=== PATIENT | female | born 1985 | race Caucasian/White ===

== ENCOUNTER 2021-04-05 15:17 | Outpatient (CLI) | payer BC, SELFPAY ==
--- NOTE | ~2021-04-05 | US_ITS ---
EXAMINATION: US OB follow up DATE: 04/05/2021 16:03 INDICATION: Excessive growth TECHNIQUE: Real-time transabdominal obstetric ultrasound. FINDINGS: Maternal carrier for excessive growth. There is a single living fetus in vertex presentation. The placenta is anterior without placenta pre via. Placental margin is 9.6 cm to the cervix. cardiac activity and movement is noted with a heart rate of 141 beats per minute. T he amniotic fluid volume is normal. ADELITA measures 13.7 cm cyst. The following biometric data were obtained: BPD: 84mm corresponds to gestational age 34 weeks 0 days. Head circumference: 318mm corresponds to gestational age 35 weeks 5 days. Abdominal circumference: 315mm corresponds to gestational age 35 weeks 3 days. Femur length: 62mm corresponds to gestational age 32 weeks 0 days. Estimated weight: 2421 ggrams +/- 363grams.] IMPRESSION: 1. Single living intrauterine in vertex presentation with an estimated gestational age of 34 weeks 2 days by current ultrasound. 2. Normal placenta. Reviewed, dictated and finalized at location A. IMPRESSION: 1. Single living intrauterine in vertex presentation with an estimat ed gestational age of 34 weeks 2 days by current ultrasound. 2. Normal placenta.
== END 2021-04-05 15:18 | disposition home or self-care (01) ==
LOC: ANHIMG 15:19
PROVIDERS: PCP Family Medicine; Visit Provider Obstetrics & Gynecology
DX: O36.60X0 Maternal care for excessive fetal growth, unspecified trimester, not applicable or unspecified (principal); Z3A.34 34 weeks gestation of pregnancy
CPT/HCPCS: 76816

== ENCOUNTER 2021-04-17 13:24 | Outpatient (RCR) | payer BC, SELFPAY ==
[2021-03-29 15:59] VITALS: BP 142/90; PULSE 97
[2021-04-03 13:15] VITALS: BP 142/88; PULSE 99
--- NOTE | 2021-04-07 15:10 | PC.NURSE ---
FHR signal intermittent due to hiccoughs.
[2021-04-07 15:24] VITALS: BP 136/89; PULSE 90
[2021-04-10 15:32] VITALS: BP 148/92; PULSE 103
[2021-04-14 15:02] VITALS: BP 152/105; PULSE 97
[2021-04-17 14:04] VITALS: BP 144/95; PULSE 88
== END 2021-06-27 23:59 | disposition home or self-care (01) ==
LOC: ANHOBOP 13:24
PROVIDERS: PCP Family Medicine; Visit Provider Obstetrics & Gynecology
DX: O16.3 Unspecified maternal hypertension, third trimester (principal); O09.513 Supervision of elderly primigravida, third trimester; Z3A.32 32 weeks gestation of pregnancy; O99.213 Obesity complicating pregnancy, third trimester; Z3A.33 33 weeks gestation of pregnancy; Z3A.34 34 weeks gestation of pregnancy; Z3A.35 35 weeks gestation of pregnancy
CPT/HCPCS: 59025

== ENCOUNTER 2021-04-19 10:01 | Outpatient (CLI) | payer BC, SELFPAY ==
[2021-04-19 10:42] LABS: Hematocrit 34.9 % (37.0-47.0); Hemoglobin 11.3 g/dL (12.0-15.0); Mean Corpuscular HGB Conc 32.4 g/dl (32-36); Mean Corpuscular Hemoglobin 27.8 pg (26-34); Mean Platelet Volume 9.6 fl (7.4-10.4); Platelet Count Result 326 k/mm3 (150-375); Red Blood Count 4.06 M/mm3 (4.2-5.4); Red Cell Distribution Width 13.9 % (11.5-14.5); White Blood Count 6.9 K/mm3 (4.5-10.0)
[2021-04-19 10:53] LABS: Alanine Aminotransferase 11 U/L (4-35); Albumin Level 3.3 g/dL (3.5-5.1); Alkaline Phosphatase 121 U/L (38-126); Anion Gap 7 mmol/L (8-16); Aspartate Amino Transferase 17 U/L (14-36); Bilirubin,Total 0.2 mg/dL (0.2-1.3); Blood Urea Nitrogen 9 mg/dL (7-17); Calcium 8.9 mg/dL (8.4-10.2); Carbon Dioxide 22 mmol/L (22-30); Chloride 107 mmol/L (98-107); Estimated Glomerular Filt Rate > 60; Glucose 110 mg/dL (65-110); Potassium 4.3 mmol/L (3.4-5.0); Sodium 136 mmol/L (137-145); Uric Acid 4.9 mg/dL (2.5-7.5)
[2021-04-19 11:24] LABS: Collection Time Urine 24 HOURS
[2021-04-19 11:30] LABS: Total Volume 24 Hour Urine 3600 ml
[2021-04-19 11:33] LABS: Creatinine Urine 38.7 mg/dL; Patient Weight 290 Lbs; Total Protein Urine Random 104 mg/dL
[2021-04-19 11:54] LABS: Total Protein Urine 24 Hr 3744 mg/24hr (28-141)
[2021-04-19 12:04] LABS: Creatinine Clearance Urine 138.9 ml/min (75-125); Serum Creat 0.5
== END 2021-04-19 10:02 | disposition home or self-care (01) ==
LOC: ANHLAB 10:04
PROVIDERS: PCP Family Medicine; Visit Provider Obstetrics & Gynecology
DX: I10 Essential (primary) hypertension (principal)
CPT/HCPCS: 36415; 80053; 81050; 82575; 84156; 84550; 85027

== ENCOUNTER 2021-04-20 14:02 | Observation (INO) | payer BC, SELFPAY ==
[2021-04-20] VITALS (14 sets, daily range): BP systolic 143–156; BP diastolic 97–104; PULSE 86–107; O2SAT 98–99; BMI 42.3
--- NOTE | 2021-04-20 14:19 | OBADM ---
This patient, Nika Rdz, admitted to the OB room OB Post 116 for observation. Patient/family oriented to hospital policies and general routines including ID bracelet, bed and alarms, visiting hours, pain management, procedures, bathroom and other care routines, personal items, smoking policy, room service/diet, and visiting hours. Patient/Family are encouraged to report perceived risks to care and to ask questions if they do not understand what they are told or what they should do.
[2021-04-20 15:08] LABS: Basophils Percent Auto 0.2 % (0.2-1.2); Eosinophils Absolute Auto 0.1 K/mm3 (0-0.3); Eosinophils Percent Auto 1.4 % (0-4.4); Hematocrit 34.1 % (37.0-47.0); Hemoglobin 10.9 g/dL (12.0-15.0); Immature Granulocyte Absolute 0.04 K/mm3 (0.00-0.031); Immature Granulocyte Percent A 0.5 % (0-0.5); Lymphocytes Absolute Auto 1.38 K/mm3 (0.9-3.2); Mean Corpuscular Hemoglobin 27.7 pg (26-34); Mean Corpuscular Volume 86.8 fl (80-100); Mean Platelet Volume 9.6 fl (7.4-10.4); Monocytes Absolute Auto 0.7 K/mm3 (0.1-0.6); Neutrophils Absolute Auto 5.9 K/mm3 (1.3-6.7); Neutrophils Percent Auto 72.9 % (45.5-73.1); Platelet Count Result 275 k/mm3 (150-375); Red Blood Count 3.93 M/mm3 (4.2-5.4); White Blood Count 8.1 K/mm3 (4.5-10.0)
[2021-04-20 15:15] LABS: Add Urine Microscopic? YES; Appearance Urine Cloudy (Clear); Bacteria Urine Trace /hpf; Bilirubin Urine Negative (Negative); Blood Urine Negative (Negative); Color Urine Amber (Yellow); Glucose Urine UA Negative (Negative); Ketones Urine Trace mg/dL (Negative); Leukocyte Esterase Ur 2+ LEU/UL (NEGATIVE); Mucus Urine Few /lpf; Nitrate Urine Negative (Negative); Protein Urine 3+ mg/dL (Negative); Specific Grav Ur 1.025 (1.001-1.035); Squamous Epithelial Cell Urine Many /hpf (Few); Urobilinogen Urine Negative mg/dL (<2.0); WBC Urine 21-30 /hpf (0-3)
[2021-04-20 15:18] LABS: Alanine Aminotransferase 10 U/L (4-35); Albumin Level 3.3 g/dL (3.5-5.1); Alkaline Phosphatase 115 U/L (38-126); Anion Gap 6 mmol/L (8-16); Aspartate Amino Transferase 16 U/L (14-36); Bilirubin,Total 0.2 mg/dL (0.2-1.3); Blood Urea Nitrogen 12 mg/dL (7-17); Calcium 8.8 mg/dL (8.4-10.2); Carbon Dioxide 21 mmol/L (22-30); Chloride 105 mmol/L (98-107); Estimated CRCL calculation 186 ml/min; Estimated Glomerular Filt Rate > 60; Glucose 85 mg/dL (65-110); Potassium 4.2 mmol/L (3.4-5.0); Sodium 132 mmol/L (137-145); Uric Acid 4.8 mg/dL (2.5-7.5)
--- NOTE | 2021-04-20 15:51 | PC.NURSE ---
1448- Spoke with Dr. Louis, BP's reveiwed. Orders for labs and urine to be drawn. 153- SPoke with Dr. Rivas, labs reveiwed, BPs reveiwed. ORders to discharge to home and continue current meds. Dr. Martin will call with a plan on Thursday.
--- NOTE | 2021-05-17 10:52 | P.PNOB_ITS ---
OB - Triage/Final Diagnosis Visit Information Comments/Additional reasons for admission: I have assessed the risk for this patient, Nika Rdz, and determined that she would benefit from observation care. Evaluation Laboratory results: Laboratory Tests 04/20/21 04/20/21 04/20/21 14:59 14:59 14:59 WBC 8.1 RBC 3.93 L Hgb 10.9 L Hct 34.1 L MCV 86.8 MCH 27.7 MCHC 32.0 RDW 14.0 Plt Count 275 MPV 9.6 Immature Gran % (Auto) 0.5 Neut % (Auto) 72.9 Lymph % (Auto) 17.0 L [place] % (Auto) 8.0 Eos % (Auto) 1.4 Baso % (Auto) 0.2 Lymph # (Auto) 1.38 [place] # (Auto) 0.7 H Eos # (Auto) 0.1 Baso # (Auto) 0.0 Abs Immat Gran (auto) 0.04 H Absolute Neuts (auto) 5.9 Absolute Nucleated RBC 0.0 Nucleated RBC % 0.0 Sodium 132 L Potassium 4.2 Chloride 105 Carbon Dioxide 21 L Anion Gap 6 L BUN 12 Creatinine 0.50 L Estim Creat Clear Calc 186 Estimated GFR > 60 Glucose 85 Uric Acid 4.8 Calcium 8.8 Total Bilirubin 0.2 AST 16 ALT 10 Alkaline Phosphatase 115 Total Protein 6.0 L Albumin 3.3 L Urine Color Lulú Urine Appearance Cloudy H Urine pH 6.0 Ur Specific [place] 1.025 Urine Protein 3+ H Urine Glucose (UA) Negative Urine Ketones Trace Ur Blood (Man) Negative Urine Nitrate Negative Urine Bilirubin Negative Urine Urobilinogen Negative Ur Leukocyte Esterase 2+ H Urine RBC 11-20 H Urine WBC 21-30 H Ur Squamous Epith Cells Many H Urine Bacteria Trace Urine Mucus Few H Final Diagnosis (1) induced hypertension: Code(s): O13.9 - Gestational [-induced] hypertension without significant proteinuria, unspecified trimester Status: Acute
== END 2021-04-20 15:47 | disposition home or self-care (01) ==
PROVIDERS: Admitting Provider Obstetrics & Gynecology; PCP Family Medicine; Visit Provider Obstetrics & Gynecology
DX: O13.3 Gestational [pregnancy-induced] hypertension without significant proteinuria, third trimester (principal); Z3A.35 35 weeks gestation of pregnancy
CPT/HCPCS: 36415; 59025; 80053; 81001; 84550; 85025; 87086; 87088; G0378; G0379

== ENCOUNTER 2021-04-22 09:31 | Inpatient (IN) | payer BC, SELFPAY ==
[2021-04-22] VITALS (160 sets, daily range): BP systolic 80–179; BP diastolic 49–110; PULSE 60–274; RESP 18; TEMP 36.6–36.9; O2SAT 90–100; BMI 42.1
--- NOTE | ~2021-04-22 | US_ITS ---
EXAMINATION: US pelvic complete EXAM DATE: 04/23/2021 08:24 INDICATION: PP bleed;check for retained placenta. Bedside Bleed . TECHNIQUE: Pelvic transabdominal sonogram was performed. There are multiple grayscale and Doppler im ages available for interpretation. Correlation is made to obstetrical ultrasound 04/05/2021. FINDINGS: The uterus measures 22.1 x 10.5 x 10.0 cm, enlarged, with diffusely heterogeneous myometriu m, consistent with patient's recent status. Centrally there is also hypoechoic region vinh ured as endometrium at 3.0 cm which is considered abnormally thickened. There is also diffusely heter ogeneous appearance to the lower uterine segment, difficult to distinguish endometrium from myometriu m. This could be from blood products or retained products of conception. Right adnexa: The ovary is not identified. There is no adnexal mass. Left adnexa: The ovary is not identified. There is no adnexal mass. IMPRESSION: 1. Thickened endometrium at 30 mm, blood products or retained products of conception. 2. Enlarged heterogeneous myometrium. Reviewed, dictated and finalized at location D. [employer]OS SHINGLE INSPECTOR IMPRESSION: 1. Thickened endometrium at 30 mm, blood products or retained products of conc eption. 2. Enlarged heterogeneous myometrium.
[2021-04-22 11:19] LABS: Basophils Percent Auto 0.4 % (0.2-1.2); Eosinophils Absolute Auto 0.1 K/mm3 (0-0.3); Eosinophils Percent Auto 1.8 % (0-4.4); Hematocrit 33.9 % (37.0-47.0); Hemoglobin 10.9 g/dL (12.0-15.0); Immature Granulocyte Absolute 0.02 K/mm3 (0.00-0.031); Immature Granulocyte Percent A 0.3 % (0-0.5); Lymphocytes Absolute Auto 1.19 K/mm3 (0.9-3.2); Lymphocytes Percent Auto 16.3 % (18.3-44.2); Mean Corpuscular HGB Conc 32.2 g/dl (32-36); Mean Corpuscular Hemoglobin 27.9 pg (26-34); Mean Corpuscular Volume 86.9 fl (80-100); Mean Platelet Volume 9.7 fl (7.4-10.4); Monocytes Absolute Auto 0.6 K/mm3 (0.1-0.6); Monocytes Percent Auto 8.6 % (2.6-8.5); Neutrophils Absolute Auto 5.3 K/mm3 (1.3-6.7); Neutrophils Percent Auto 72.6 % (45.5-73.1); Platelet Count Result 290 k/mm3 (150-375); Red Cell Distribution Width 14.2 % (11.5-14.5); White Blood Count 7.3 K/mm3 (4.5-10.0)
[2021-04-22] MEDS: LACTATED RINGERS 1,000 ML 75 ML IV CONT ×2 (11:21→21:08)
[2021-04-22] MEDS: MAGNESIUM SULF 4 GM/WATER100ML 4 GM/100 ML BAG IVPB (11:24)
[2021-04-22] MEDS: OXYTOCIN 30 UNITS/NS 500 ML 30 UNITS/500 ML BAG 6 UNITS IV CONT (11:27)
[2021-04-22 11:35] LABS: Uric Acid 5.2 mg/dL (2.5-7.5)
[2021-04-22 11:37] LABS: Alanine Aminotransferase 12 U/L (4-35); Albumin Level 3.3 g/dL (3.5-5.1); Alkaline Phosphatase 113 U/L (38-126); Anion Gap 5 mmol/L (8-16); Aspartate Amino Transferase 19 U/L (14-36); Bilirubin,Total 0.2 mg/dL (0.2-1.3); Blood Urea Nitrogen 12 mg/dL (7-17); Calcium 8.8 mg/dL (8.4-10.2); Carbon Dioxide 23 mmol/L (22-30); Chloride 105 mmol/L (98-107); Estimated Glomerular Filt Rate > 60; Glucose 93 mg/dL (65-110); Potassium 4.2 mmol/L (3.4-5.0); Sodium 133 mmol/L (137-145)
[2021-04-22] MEDS: LABETALOL HCL INJ 100 MG/20 ML VIAL 20 MG IV PUSH (14:12)
--- NOTE | 2021-04-22 15:17 | PM.IMHP ---
H&P: HPI History of Present Illness Date/Time: 04/22/21 15:17 G1 at 36+0 was scheduled this am for emergent induction of labor due to superimposed preeclampsia based on 24 hour urine results received by me this morning (3744 mg protein). She denies CAMP/visual changes. Normal movement. Occasional cramping. No bleeding or leaking fluid. She has been on procardia for a couple weeks Chief Complaint: Superimposed preeclampsia, 36 weeks gestation Review of Systems Review of Systems: All systems reviewed & are unremarkable except as noted in HPI and below PMFSH Past Medical History Medical History Anxiety Asthma Surgical History Surgical History No pertinent past surgical history Family History Family History Father Hypertension, Onset Age: 47 Family history of elevated blood lipids Family history of cardiovascular disease, Onset Age: 47 Alcoholism Depression Anxiety Mother Hypertension Family history of elevated blood lipids Grandparent Cerebrovascular accident Family history of hypercholesterolemia Family history of suicide Family history of glaucoma Family history of lung cancer Alcoholism Hypertension Anxiety Depression Social History Social History Smoking status: Never smoker Second hand tobacco smoke exposure: No Alcohol intake: never Substance use: never Spiritual care concerns: No Meds Home Medications and Allergies Home Medications Medication Instructions Recorded Confirmed Type montelukast 10 mg tablet 10 mg PO DAILY #90 tablet 12/16/20 04/20/21 Rx docosahexaenoic acid 200 mg capsule 200 mg PO DAILY 03/08/21 04/20/21 History sertraline 100 mg tablet 100 mg PO DAILY #30 tablet 03/11/21 04/20/21 Rx aspirin 162 mg PO DAILY 04/07/21 04/20/21 History nifedipine 30 mg PO BID 04/20/21 04/20/21 History Allergies Allergy/AdvReac Type Severity Reaction Status Date / Time Penicillins Allergy Severe FEVER, Verified 04/17/21 12:53 VOMITTING, FLU-LIKE SYMPTOMS, HIVES, anaphylaxis Vital Signs Vital Signs - 24 hr 04/22/21 10:34 04/22/21 10:45 04/22/21 11:00 Pulse Rate 93 96 91 Blood Pressure 153/102 H 161/105 H 154/105 H 04/22/21 11:31 04/22/21 11:45 04/22/21 12:01 Pulse Rate 94 99 91 Blood Pressure 137/98 H 149/100 H 138/97 H 04/22/21 12:15 04/22/21 12:31 04/22/21 12:46 Pulse Rate 93 89 97 Blood Pressure 148/94 H 144/98 H 161/102 H 04/22/21 13:00 04/22/21 13:16 04/22/21 13:30 Pulse Rate 93 90 89 Blood Pressure 173/99 H 166/101 H 161/102 H 04/22/21 13:45 04/22/21 14:11 04/22/21 14:12 Pulse Rate 98 86 89 Blood Pressure 179/102 H 152/93 H 04/22/21 14:16 04/22/21 14:21 04/22/21 14:26 Pulse Rate 82 83 82 Blood Pressure 143/87 H 153/87 H 151/92 H 04/22/21 14:31 04/22/21 14:36 04/22/21 14:46 Pulse Rate 85 86 81 Blood Pressure 144/93 H 155/93 H 147/93 H 04/22/21 15:01 Pulse Rate 83 Blood Pressure 153/92 H Exam Const: General: healthy appearing, no acute distress, alert and awake Resp: Auscultation: clear to auscultation bilaterally Cardio: Rate: regular rate Rhythm: regular rhythm GI: Inspection: non-distended GI Palp: Yes Soft to palpation, No Tenderness to palpation present (GI) and Yes Other GI palpation findings present (gravid) : Manual OB Exam: dilated 2 cm, effaced 50%, station -2 and other (AROM with clear fluid, IUPC placed easily) Extrem: General: no calf tenderness and edema (2+ bilateral feet/ankles) Psych: Mental Status: mental status grossly normal H&P: Results Labs Labs: Short CBC 04/22/21 Range/Units 11:10 WBC 7.3 (4.5-10.0) K/mm3 Hgb 10.9 L (12.0-15.0) g/dL Hct 33.9 L (37.0-47.0) %
--- NOTE | 2021-04-22 17:04 | WPDANESEPPF ---
Anes - Initial Pre Proc Eval Procedure: labor epidural Date/Time: 04/22/21 17:04 Surgeon: Yue Martin MD Pre Op Diagnosis: labor pain Pre Op Diagnosis: Induction of Labor/preeclampsia Patient Data Age: 35 Gender: F Height: Weight: Last Vital Signs Temp 36.9 C 04/22/21 15:56 Pulse 76 04/22/21 17:01 BP 154/88 H 04/22/21 17:01 Allergies Allergy/AdvReac Type Severity Reaction Status Date / Time Penicillins Allergy Severe FEVER, Verified 04/17/21 12:53 VOMITTING, FLU-LIKE SYMPTOMS, HIVES, anaphylaxis Home Medications Medication Instructions Recorded Confirmed Type montelukast 10 mg tablet 10 mg PO DAILY #90 tablet 12/16/20 04/20/21 Rx docosahexaenoic acid 200 mg capsule 200 mg PO DAILY 03/08/21 04/20/21 History sertraline 100 mg tablet 100 mg PO DAILY #30 tablet 03/11/21 04/20/21 Rx aspirin 162 mg PO DAILY 04/07/21 04/20/21 History nifedipine 30 mg PO BID 04/20/21 04/20/21 History Laboratory Tests 04/22/21 04/22/21 04/22/21 11:09 11:09 11:10 WBC 7.3 K/mm3 K/mm3 (4.5-10.0) RBC 3.90 M/mm3 L M/mm3 (4.2-5.4) Hgb 10.9 g/dL L g/dL (12.0-15.0) Hct 33.9 % L % (37.0-47.0) MCV 86.9 fl fl (80-100) MCH 27.9 pg pg (26-34) MCHC 32.2 g/dl g/dl (32-36) RDW 14.2 % % (11.5-14.5) Plt Count 290 k/mm3 k/mm3 (150-375) MPV 9.7 fl fl (7.4-10.4) Immature Gran % (Auto) 0.3 % % (0-0.5) Neut % (Auto) 72.6 % % (45.5-73.1) Lymph % (Auto) 16.3 % L % (18.3-44.2) [place] % (Auto) 8.6 % H % (2.6-8.5) Eos % (Auto) 1.8 % % (0-4.4) Baso % (Auto) 0.4 % % (0.2-1.2) Lymph # (Auto) 1.19 K/mm3 K/mm3 (0.9-3.2) [place] # (Auto) 0.6 K/mm3 K/mm3 (0.1-0.6) Eos # (Auto) 0.1 K/mm3 K/mm3 (0-0.3) Baso # (Auto) 0.0 K/mm3 K/mm3 (0.0-0.1) Abs Immat Gran (auto) 0.02 K/mm3 K/mm3 (0.00-0.031) Absolute Neuts (auto) 5.3 K/mm3 K/mm3 (1.3-6.7) Absolute Nucleated RBC 0.0 K/mm3 K/mm3 (0.0-0.012) Nucleated RBC % 0.0 % % (0.0-0.2) Sodium Potassium Chloride Carbon Dioxide Anion Gap BUN Creatinine Estim Creat Clear Calc Estimated GFR Glucose Uric Acid Calcium Total Bilirubin AST ALT Alkaline Phosphatase Total Protein Albumin RPR Pending Blood Type A Positive Antibody Screen Negative 04/22/21 04/22/21 11:10 11:10 WBC RBC Hgb Hct MCV MCH MCHC RDW Plt Count MPV Immature Gran % (Auto) Neut % (Auto) Lymph % (Auto) [place] % (Auto) Eos % (Auto) Baso % (Auto) Lymph # (Auto) [place] # (Auto) Eos # (Auto) Baso # (Auto) Abs Immat Gran (auto) Absolute Neuts (auto) Absolute Nucleated RBC Nucleated RBC % Sodium 133 mmol/L L mmol/L (137-145) Potassium 4.2 mmol/L mmol/L (3.4-5.0) Chloride 105 mmol/L mmol/L (98-107) Carbon Dioxide 23 mmol/L mmol/L (22-30) Anion Gap 5 mmol/L L mmol/L (8-16) BUN 12 mg/dL mg/dL (7-17) Creatinine 0.50 mg/dL L mg/dL (0.7-1.0) Estim Creat Clear Calc Not Reportable Estimated GFR > 60 (59 - ) Glucose 93 mg/dL mg/dL (65-110) Uric Acid 5.2 mg/dL mg/dL (2.5-7.5) Calcium 8.8 mg/dL mg/dL (8.4-10.2) Total Bilirubin 0.2 mg/dL mg/dL (0.2-1.3) AST 19 U/L U/L (14-36) ALT 12 U/L U/L (4-35) Alkaline Phosphatase 113 U/L U/L (38-126)
[2021-04-22] MEDS: MAGNESIUM SULF 20GM/WATER500ML 500 ML 50 MG IV CONT (21:19)
[2021-04-23] VITALS (191 sets, daily range): BP systolic 61–148; BP diastolic 26–106; PULSE 70–240; RESP 13–18; TEMP 36.2–37; O2SAT 89–100
--- NOTE | 2021-04-23 02:24 | PM.OBPRVD ---
OB - Delivery Note Procedure Delivery date: 04/23/21 Procedure: events: Pre-Eclampsia and Labor Induction Intrapartal events: Severe Preeclampsia Induction method: per pitocin protocol Delivery augmentation: rupture of membranes Delivery monitor: external FHT and internal uterine Route of delivery: Laceration Description: Periurethral (right) and Perineal - 2nd Degree Delivery repair: vicryl (2-0 and 3-0) Specimen: Yes Quantitative Blood Loss (ml): 1,100 Anesthesia type: Epidural Disposition: floor Complications: greater than average blood loss, prior to delivery from laceration with pushing, then large gush just prior to delivery of placenta [place] Baby Date of : 04/23/21 Time of : 01:55 Weeks of gestation at delivery: 36 Infant gender: Male Weight (pounds): 5 Weight (ounces): 15 presentation: vertex position: Left Occiput Anterior Placenta delivery description: Spontaneous cord vessel description: 3 Vessels and Clamped/Cut score one minute: 5 score five minutes: 7
[2021-04-23 03:15] LABS: Hematocrit 27.6 % (37.0-47.0); Hemoglobin 9.2 g/dL (12.0-15.0)
[2021-04-23] MEDS: LACTATED RINGERS 1,000 ML 75 ML IV CONT (04:51)
[2021-04-23] MEDS: IBUPROFEN 600 MG TABLET PO (05:24)
[2021-04-23] MEDS: ONDANSETRON INJ 4 MG/2 ML VIAL IV PUSH (06:18)
[2021-04-23] MEDS: miSOPROStol 200 MCG TABLET 1000 MCG RECTAL (06:18)
[2021-04-23] MEDS: OXYTOCIN 30 UNITS/NS 500 ML 30 UNITS/500 ML BAG 125 UNITS (06:32)
[2021-04-23] MEDS: MAGNESIUM SULF 20GM/WATER500ML 500 ML 50 MG IV CONT ×3 (07:21→18:36)
[2021-04-23 07:38] LABS: Hematocrit 23.2 % (37.0-47.0); Hemoglobin 7.6 g/dL (12.0-15.0)
--- NOTE | 2021-04-23 08:05 | PM.OBPNVD ---
OB - PN: Subj Subjective Date/time seen: 04/23/21 08:05 Patient comments: pain well controlled and other (She has had two or three gushes of blood after delivery. Feels week and exhausted but no CP, SOB, dizziness, CAMP, visual changes) baby status: doing well OB - PN: Obj Data Labs CBC & Chem 7: 04/23/21 03:00 04/22/21 11:10 Labs: Laboratory Results - last 24 hr 04/22/21 04/22/21 04/22/21 11:09 11:10 11:10 WBC 7.3 RBC 3.90 L Hgb 10.9 L Hct 33.9 L MCV 86.9 MCH 27.9 MCHC 32.2 RDW 14.2 Plt Count 290 MPV 9.7 Immature Gran % (Auto) 0.3 Neut % (Auto) 72.6 Lymph % (Auto) 16.3 L [place] % (Auto) 8.6 H Eos % (Auto) 1.8 Baso % (Auto) 0.4 Lymph # (Auto) 1.19 [place] # (Auto) 0.6 Eos # (Auto) 0.1 Baso # (Auto) 0.0 Abs Immat Gran (auto) 0.02 Absolute Neuts (auto) 5.3 Absolute Nucleated RBC 0.0 Nucleated RBC % 0.0 Sodium Potassium Chloride Carbon Dioxide Anion Gap BUN Creatinine Estim Creat Clear Calc Estimated GFR Glucose Uric Acid 5.2 Calcium Total Bilirubin AST ALT Alkaline Phosphatase Total Protein Albumin Blood Type A Positive Antibody Screen Negative 04/22/21 04/23/21 11:10 03:00 WBC RBC Hgb 9.2 L Hct 27.6 L MCV MCH MCHC RDW Plt Count MPV Immature Gran % (Auto) Neut % (Auto) Lymph % (Auto) [place] % (Auto) Eos % (Auto) Baso % (Auto) Lymph # (Auto) [place] # (Auto) Eos # (Auto) Baso # (Auto) Abs Immat Gran (auto) Absolute Neuts (auto) Absolute Nucleated RBC Nucleated RBC % Sodium 133 L Potassium 4.2 Chloride 105 Carbon Dioxide 23 Anion Gap 5 L BUN 12 Creatinine 0.50 L Estim Creat Clear Calc Not Reportable Estimated GFR > 60 Glucose 93 Uric Acid Calcium 8.8 Total Bilirubin 0.2 AST 19 ALT 12 Alkaline Phosphatase 113 Total Protein 6.0 L Albumin 3.3 L Blood Type Antibody Screen OB - PN A/P Assessment and Plan (1) Pre-eclampsia superimposed on chronic hypertension: Code(s): O11.9 - Pre-existing hypertension with pre-eclampsia, unspecified trimester Status: Acute Assessment and Plan: BP now low. Continue magnesium 24 hours after delivery and observe closely (2) hemorrhage, delivered: Code(s): O72.1 - Other immediate hemorrhage Status: Acute Assessment and Plan: Total QBL between 6716-9229 mL now with anemia, most recent hemoglobin 9.2, another pending. She is willing to receive blood if needed. Will await the pending H&H. Check U/S for possible retained placenta. NPO for now in case she needs D&C Plan day: 0 (s/p vaginal delivery, doing well) Plan: routine care Time Spent With Patient Time: Total time spent is greater than 50% in coordination of care (as documented) at patient's floor/unit and/or counseling patient: Time with patient: less than 15 minutes Exam Const: General: no acute distress GI: Inspection: other (Fundus firm and nontender at umbilicus) GI Palp: Yes Soft to palpation and No Tenderness to palpation present (GI) Extrem: General: no edema
--- NOTE | 2021-04-23 08:32 | PC.NURSE ---
0810--US at bedside.
--- NOTE | 2021-04-23 08:33 | PC.NURSE ---
0755--Dr. Martin at bedside. Plan of care discussed with patient and FOB.
--- NOTE | 2021-04-23 08:50 | PC.NURSE ---
0850--Dr. Araya at bedside to start IV with US machine.
--- NOTE | 2021-04-23 09:44 | WPDHPUPDATE1 ---
History and Physical Update Update Date/Time: 04/23/21 09:44 History and Physical has been reviewed, including an updated exam of the patient. Ultrasound this am shows possible retained products of conception, so she agreed to proceed with D&C and signed consent after risks, benefits, and alternatives have been discussed and questions answered. Patient agrees to proceed with procedure.
--- NOTE | 2021-04-23 10:29 | W.PM.PROC2 ---
Procedure Note - Detailed Date of Procedure 04/23/21 Pre-op Diagnosis hemorrhage, possible retained placenta Post-op Diagnosis other ( hemorrhage, retained placenta) Procedure Performed Suction and sharp D&C Surgeon Yue Martin MD Anesthesia general Indications hemorrhage, possible retained placenta on ultrasound Findings multiple clots and small amounts of tissue inside vagina/uterus. Cervix intact Description of Procedure She was taken to the operating room where general anesthesia was obtained. She was prepared and draped in the normal sterile fashion in the dorsal lithotomy position. A speculum was placed in the vagina. Her cervix was unable to be visualized at 1st due to multiple dark red blood clots in the vaginal canal. Those were removed using ring forceps until the cervix was able to be visualized. The anterior lip of the cervix was grasped with a ring forceps. Her cervix was still dilated to 3-4 cm. A 14. Curved suction curette was passed easily into the endometrial canal. Several passes were made with the suction, obtaining and multiple blood clots again small pieces of what looked like membranes and/or retained placental tissue. A gentle sharp curettage was then performed, loosening any remaining tissue. Another couple passes were taken with the suction curette. Minimal blood and no apparent tissue was obtained at that point. The cervix was inspected he carefully around the entire circumference, and it was noted to be intact with no lacerations. There were no bleeding lacerations present in the vagina. The stitches that had been placed previously were still intact. All instruments were removed from the vagina. Sponge, lap, and instrument counts were correct x2. She was taken to the recovery room in stable condition. Estimated Blood Loss 600 Drains No Packing No Pathology yes Complications No immediate complications Condition stable Disposition PACU
--- NOTE | 2021-04-23 10:35 | PC.NURSE ---
0903--US report relayed to Dr. Martin. Decision made to perform D&C. Anesthesia and OR notified.
[2021-04-23] MEDS: LACTATED RINGERS 1,000 ML 30 ML IV CONT (10:37)
--- NOTE | 2021-04-23 10:41 | PC.NURSE ---
0999--Discussed plan of care with patient and FOB. No questions at this time. Pt verbalizes understanding of procedure.
--- NOTE | 2021-04-23 10:51 | PC.NURSE ---
0922--report given to OR.
--- NOTE | 2021-04-23 10:51 | PC.NURSE ---
0940--PT to [facility].
[2021-04-23] MEDS: SODIUM CHLORIDE 0.9% IV 250 ML 30 ML IV CONT (11:00)
[2021-04-23] MEDS: LACTATED RINGERS 1,000 ML 75 ML (12:18)
[2021-04-23] MEDS: SERTRALINE HCL 50 MG TABLET 100 MG PO (14:59)
--- NOTE | 2021-04-23 15:40 | PC.NURSE ---
Mother called out for assist with feeding. is able to freely thrust tongue past gum ridge and flange both lips. Skin is intact on both nipples, no redness and bruising noted. Discussed establishing in the late may be more difficult due to their immaturity, may be less alert, have less stamina, and have greater difficulty with latch, suck, and swallow. ?s feeding may impact mother?s milk supply, pumping may need to be initiated continued until milk supply is well established and is able to effectively breastfeed without supplementation. Reviewed infant feeding cues, frequencies, duration of feedings, feeding elimination flow sheet, and signs of adequate intake. Demonstrated stimulation techniques to wake infant for feeding. Assisted with infant to breast. Reviewed positioning/alignment in cross cradle, holding breast in ?U? hold and guided asymmetrical latch on. Reviewed rational for each. Infant able to latch correctly within a few attempts. Infant made no effort to suckle with continued stimulation. Attempt for 15 minutes. Suggested mother put to breast each feeding for 5-15 minutes, then follow with supplement and pumping Nipple care reviewed of lanolin after feedings, warm compresses as needed. Discussed the difference of effective vs ineffective feeding. Reviewed infant is latching with no effective feeding noted. With no milk transfer at this time and continues to need supplement after . Feeding options discussed, Feeding Plan is for mother to put to breast each feeding for up to 15 minutes, then pace feed supplement 15-20 mls and pump for 10-15 minutes. Parents are comfortable with supplementation and pumping. If infant begins to nurse effectively with long draws and frequent swallowing noted, may decrease supplementation and discontinue pumping. Suggested mother have LC geospatial systems integrator observe feeding before discontinuing supplementation. Discussed increasing supplementation as infant requires to satisfactions. Reviewed paced feeding and suggested to stop when is satisfied, as long as is having required output. With increased supplementation infant may not want to feed for 4 hours. Mother will continue to pump on feeding schedule and will increase session to 20 minutes if pumping every 4 hours. Instructed mother to call out for RN assistance if she is unable to latch for feeding or she has discomfort with nursing. Instructed feeding should be initiated three hours from start of last feeding or if feeding cues are noted before. Mother voiced understanding of information shared.
[2021-04-23] MEDS: POLYSACCHARIDE IRON COMPLEX 150 MG CAPSULE PO (16:00)
[2021-04-23] MEDS: DOCUSATE SODIUM 100 MG CAPSULE PO (16:00)
--- NOTE | 2021-04-23 16:00 | PC.NURSE ---
Breast pump provided due to ineffective feeding/. Instructions given on breast pump care and usage, pumping schedule, nipple care, and collection and storage of breast milk. Encouraged [id number], breast massage and manual expression to stimulate supply. Assessed patient for correct flange size, placement and draw. Patient verbalizes and demonstrates understanding of instructions.
--- NOTE | 2021-04-23 16:24 | PC.NURSE ---
1203 Pt admitted to room 280 from PACU after D&C today with Dr. Martin; Pt delivered viable male infant at 0155 today; she had bleeding PP that did not respond to the treatments given, and pt was taken to OR for a D&C. Pt admitted awake and alert, reporting no pain; VSS and assessment WNL. Magnesium and LR infusing as ordered.
[2021-04-23] MEDS: ACETAMINOPHEN 325 MG TABLET 650 MG PO ×2 (17:33→23:49)
[2021-04-24] VITALS (7 sets, daily range): BP systolic 131–144; BP diastolic 78–98; PULSE 87–96; RESP 16–20; TEMP 36.4–37.1; O2SAT 98–100
[2021-04-24 05:01] LABS: Hematocrit 24.4 % (37.0-47.0); Hemoglobin 7.8 g/dL (12.0-15.0)
--- NOTE | 2021-04-24 07:00 | PC.NURSE ---
PT introductions made and plan of care discussed per post , pain management, breast feeding, pumping and bottle feeding, daily care activities and post PIH magnesium sulfate administration. PT and spouse both recipients of instructions this shift per one to one discussion, mom baby care guide and demonstrations. PT shows no barriers to learning at this time.
--- NOTE | 2021-04-24 08:34 | PM.OBPNVD ---
OB - PN: Subj Subjective Date/time seen: 04/24/21 08:34 Patient comments: pain well controlled and other (Lochia similar to menses. No CP, SOB, dizziness, CAMP, visual changes. Feels tired but much better) [place] baby status: doing well OB - PN: Obj Data Labs CBC & Chem 7: 04/24/21 04:25 04/22/21 11:10 Labs: Laboratory Results - last 24 hr 04/22/21 04/24/21 11:09 04:25 Hgb 7.8 L Hct 24.4 L Blood Type A Positive Antibody Screen Negative Crossmatch See Detail Imaging Radiologist's impression: Impressions Pelvis Ultrasound 04/23/21 08:36 IMPRESSION: 1. Thickened endometrium at 30 mm, blood products or retained products of conception. 2. Enlarged heterogeneous myometrium. OB - PN A/P Assessment and Plan (1) Pre-eclampsia superimposed on chronic hypertension: Code(s): O11.9 - Pre-existing hypertension with pre-eclampsia, unspecified trimester Status: Acute Assessment and Plan: BP normal to mildly elevated, which is expected at this point. She was on nifedipine prior to delivery, but being held due to hypotension yesterday. Will continue to observe off BP medication and now off magnesium. Asymptomatic (2) hemorrhage, delivered: Code(s): O72.1 - Other immediate hemorrhage Status: Acute Assessment and Plan: Improved after D&C yesterday for retained placenta. Anemia s/p 2 units PRBCs. Vitals improved and stable, and no symptoms of severe anemia. Continue to observe closely Plan day: 1 (s/p vaginal delivery, doing well) Plan: routine care Time Spent With Patient Time: Total time spent is greater than 50% in coordination of care (as documented) at patient's floor/unit and/or counseling patient: Exam Const: General: no acute distress GI: Inspection: other (Fundus firm and nontender at umbilicus) GI Palp: Yes Soft to palpation and No Tenderness to palpation present (GI) Extrem: General: no edema
[2021-04-24] MEDS: SERTRALINE HCL 50 MG TABLET 100 MG PO (09:20)
[2021-04-24] MEDS: DOCUSATE SODIUM 100 MG CAPSULE PO ×2 (09:21→15:51)
[2021-04-24] MEDS: MULTIVIT/MIN/PREN/FOL AC/IRON TABLET 1 TAB PO (09:21)
[2021-04-24] MEDS: POLYSACCHARIDE IRON COMPLEX 150 MG CAPSULE PO ×2 (09:24→15:52)
[2021-04-24] MEDS: ACETAMINOPHEN 325 MG TABLET 650 MG PO ×3 (09:25→21:58)
[2021-04-24] MEDS: IBUPROFEN 600 MG TABLET PO ×3 (09:26→21:58)
[2021-04-24] MEDS: LANOLIN (LANSINOH) 7.5 GM CREAM 1 APPLIC TOPICAL (09:29)
--- NOTE | 2021-04-24 09:54 | WPDANLDPN2 ---
Anes-Prog Note L&D Date/Time: 04/24/21 09:54 Comfortable throughout: labor and delivery Neuraxial method: epidural Epidural/Spinal procedure site: clean & non-tender Neuro status: Neuro function grossly intact. Cardiovascular status: normal Respiratory status: normal Airway patency: baseline Mental status: baseline Post-Op hydration status: normal Vital Signs: Last Vital Signs Temp 37.1 C 04/24/21 07:45 Pulse 88 04/24/21 07:45 Resp 18 04/24/21 07:45 BP 133/82 04/24/21 07:45 Pulse Ox 100 04/24/21 07:45 Pain score (VAS): 0 I/O: Intake & Output 04/23/21 04/24/21 04/24/21 23:59 07:59 15:59 Intake Total 850 350 Output Total 2800 400 Balance -1950 -50 Post-procedural complaints: none Patient feedback: Patient satisfied with anesthetic care.
--- NOTE | 2021-04-24 14:50 | PC.NURSE ---
Consult with pt., mother states she has not pumped regularly, she has been tired from the Magnesium, which has now been discontinued. Mother states she has pumped a few times and plans to shower and to begin pumping every three hours. Mother denied discomfort or difficulties with pumping. Discussed colostrum vs milk supply and mother may not see more than a few drops the first few days, milk should transition in by day 3 and she may see more volume pumped per session. Mother voiced understanding of information shared.
[2021-04-25 03:50] VITALS: BP 144/95; PULSE 84
[2021-04-25] MEDS: ACETAMINOPHEN 325 MG TABLET 650 MG PO ×2 (03:52→10:47)
[2021-04-25] MEDS: IBUPROFEN 600 MG TABLET PO ×2 (03:52→10:48)
--- NOTE | 2021-04-25 06:45 | PC.NURSE ---
PT introductions made and plan of care discussed per post , pain management, breast feeding, pumping and bottle feeding, daily care activities, post PIH magnesium sulfate administration and pending discharge to home. PT and spouse both recipients of instructions this shift per one to one discussion, mom baby care guide and demonstrations. PT shows no barriers to learning at this time.
[2021-04-25 07:55] VITALS: BP 119/80; PULSE 56; RESP 16; TEMP 36.1; O2SAT 99
--- NOTE | 2021-04-25 07:59 | P.PNOB_ITS ---
OB - PN: Subj Subjective Date/time seen: 04/25/21 07:59 Patient comments: no complaints, pain well controlled and other (Lochia similar to menses. No CP, SOB, dizziness, CAMP, visual changes) [place] baby status: doing well OB - PN: Obj Data Labs CBC & Chem 7: 04/24/21 04:25 04/22/21 11:10 OB - PN A/P Assessment and Plan (1) Pre-eclampsia superimposed on chronic hypertension: Code(s): O11.9 - Pre-existing hypertension with pre-eclampsia, unspecified trimester Status: Acute Assessment and Plan: BP normal to mildly elevated, asymptomatic. Will continue to observe without medication. Reviewed signs/sx preeclampsia and that it can occur as well. She expressed understanding (2) hemorrhage, delivered: Code(s): O72.1 - Other immediate hemorrhage Status: Acute Assessment and Plan: Anemia, stable s/p 2 units PRBCs and D&C 2 days ago for retained placenta. Asymptomatic, vitals stable. Continue PNV and iron Plan day: 2 (s/p vaginal delivery, doing well) Plan: routine care, discharge home and other (Follow up in office in 1 week) Time Spent With Patient Time: Total time spent is greater than 50% in coordination of care (as documented) at patient's floor/unit and/or counseling patient: Time with patient: less than 15 minutes Exam Const: General: no acute distress GI: Inspection: other (Fundus firm and nontender below umbilicus) GI Palp: Yes Soft to palpation and No Tenderness to palpation present (GI) Extrem: General: no edema
--- NOTE | 2021-04-25 08:02 | PM.OBDSVD ---
DS: Admitting Diagnosis Discharge Date 04/25/2021 Admitting Diagnosis superimposed preeclampsia, induction of labor DS: Discharge Diagnosis Discharge Diagnosis (1) Pre-eclampsia superimposed on chronic hypertension: Code(s): O11.9 - Pre-existing hypertension with pre-eclampsia, unspecified trimester Status: Acute (2) hemorrhage, delivered: Code(s): O72.1 - Other immediate hemorrhage Status: Acute OB - DS: Summary OB Procedures : PIH Mgmt OB Procedures Intrapartum: Spontaneous Vag Delivery OB Procedures: : Transfusion and Curettage Peripartum Data Infant Delivery Method: Natural Vaginal Laceration Description: Periurethral and Perineal - 2nd Degree Procedures: Procedures Operation Date: 04/23/21 10:00 Actual Procedure Side Surgeon p Suction Dilatation and Curettage Not Applicable Yue Martin MD Status at Discharge Functional status at discharge: independent ambulation Overall status at discharge: patient is progressing back to baseline Time Spent with Patient Time attestation: Total time spent providing and/or coordinating discharge services: Time spent: Less than 30 minutes DS: Data Data Completed and Pending Pending studies at discharge: Pending at discharge 04/23/21 10:20 Surgical [PTH] Routine 04/23/21 13:15 Surgical [PTH] Routine Discharge Plan Discharge Attending physician on discharge: Yue Martin Discharging Clinician: Yue Martin Patient Disposition: Home, Self-Care Activity: may shower and pelvic rest Diet: as tolerated Discharge Instructions: Education: Mom and Baby Guide Given to: Mother Follow-Up: Call your delivering provider's office for an appointment to be seen in: 1 Week Mom and baby should come to the [facility] for the follow-up appointment. Appointment Date/Time: April 26, 2021 at 10:00 am What to expect at your follow-up visit: Blood Pressure Check Call [phone] if you are unable to keep your appointment time. BREAST CARE: * Wear a snug supportive bra. * For engorgement discomfort: Breast Feeding: * Apply warm moist washcloths * Express milk as needed to relieve engorgement * Wear loose clothing Bottle Feeding: * May apply ice packs * For sore nipples: * Identify correct latch-on * Apply warm moist washcloths before and after nursing * Air dry nipples after nursing * May apply Lansinoh cream to nipples PERINEAL CARE: * Until bleeding stops, use your cheryl bottle after urinating * Change your pad frequently throughout the day * You may take sitz baths several times a day (fill your bathtub with warm water and soak for 20 minutes.) Do NOT bathe in the water * No tub baths until seen by your physician - You may shower ACTIVITY: * Rest as much as possible. * Do not exercise or lift anything heavier than your baby (such as laundry or other children.) * Avoid stairs or driving as much as possible. * Do not put anything into the vagina. No douching, tampons, or sexual activity until seen by physician. NOTIFY PHYSICIAN IF YOU HAVE ANY QUESTIONS OR IF ANY OF THE FOLLOWING SYMPTOMS OCCUR: * If your perineum becomes red, swollen, or more painful than what you have experienced in the hospital. * If your vaginal bleeding becomes foul smelling. * If your vaginal bleeding becomes more heavy than a period or if your bleeding changes from pink to bright red. However, you may pass an occasional walnut-sized clot once or twice for the first week . * If you experience a sharp, shooting pain in you calves. * If you discover a hard, reddened area on your breast or if you experience flu-like symptoms. * If you have a fever of 100.4 or greater DIET: * Eat regular, well-balanced meals. * Drink plenty of fluids daily. If , drink to thirst. Ludin
--- NOTE | 2021-04-25 09:10 | PC.NURSE ---
Reviewed breast pump care and usage, pumping schedule, nipple care, and collection and storage of breast milk. Encouraged [id number], breast massage and manual expression to stimulate supply. Assessed patient for correct flange size, placement and draw. Patient verbalizes and demonstrates understanding of instructions. Mother is pumping without difficulties or discomfort. Mother has a pump for home use and is comfortable with use. Discussed colostrum vs milk supply and mother may not see more than a few drops the first few days, milk should transition in by day 3 and she may see more volume pumped per session. Discussed increasing supplementation as requires to satisfactions. Reviewed paced feeding and suggested to stop when infant is satisfied, as long as infant is having required output. With increased supplementation may not want to feed for 4 hours. Mother will continue to pump on feeding schedule and will increase session to 20 minutes if pumping every 4 hours. Mother is feeding as required and waking to feed if needed. Infant is feeding without issue, and is currently meeting outcomes for weight, output, jaundice and feeding frequencies. Mother states she feels confident to continue current feeding plan at home. Reviewed transition to breast milk, signs of adequate intake, and engorgement/relief. Instructed to call ICP if intake/output less than required. Reviewed regular medications mother is taking. Information provided per Lydia. Reviewed community resources on the [facility] website and in the Mom/Baby guide. Information on outpatient services provided. Mother has no further questions at this time. Instructed feeding should be initiated three hours from start of last feeding or if feeding cues are noted before until seen by ICP. Mother voiced understanding of information shared.
[2021-04-25 10:45] VITALS: PULSE 56; RESP 16; O2SAT 99
[2021-04-25] MEDS: SERTRALINE HCL 50 MG TABLET 100 MG PO (10:46)
[2021-04-25] MEDS: DOCUSATE SODIUM 100 MG CAPSULE PO (10:46)
[2021-04-25] MEDS: MULTIVIT/MIN/PREN/FOL AC/IRON TABLET 1 TAB PO (10:47)
[2021-04-25] MEDS: POLYSACCHARIDE IRON COMPLEX 150 MG CAPSULE PO (10:47)
--- NOTE | 2021-04-25 11:00 | PC.NURSE ---
PT received discharge instructions per protocol and verbalized understanding
--- NOTE | 2021-04-25 11:35 | PC.NURSE ---
Pt discharged to home ambulatory accompanied by spouse and and taken to waiting car. Follow up appts confirmed
[2021-04-26 07:19] LABS: Rapid Plasma Reagin Non-Reactive (NonReactive)
[2021-04-26 10:35] VITALS: BP 150/90; PULSE 81; RESP 20; TEMP 36.9; O2SAT 100
== END 2021-04-25 11:35 | disposition home or self-care (01) | DRG 797 ==
LOC: ANHLDR 04-23 09:12 → ANHOB2 04-23 12:23
PROVIDERS: Admitting Provider Obstetrics & Gynecology; PCP Family Medicine; Visit Provider Obstetrics & Gynecology
PROC: 10E0XZZ Delivery of Products of Conception, External Approach (ICD-10-PCS; principal; 2021-04-23 10:00)
DX: O11.4 Pre-existing hypertension with pre-eclampsia, complicating childbirth (principal); D62 Acute posthemorrhagic anemia; Z37.0 Single live birth; O10.92 Unspecified pre-existing hypertension complicating childbirth; O70.1 Second degree perineal laceration during delivery; O71.82 Other specified trauma to perineum and vulva; O72.1 Other immediate postpartum hemorrhage; O99.02 Anemia complicating childbirth; D64.89 Other specified anemias; Z3A.36 36 weeks gestation of pregnancy
CPT/HCPCS: 36415; 36430; 59025; 76856; 80053; 81001; 81050; 82575; 84156; 84550; 85014; 85018; 85025; 85027; 86592; 86850; 86900; 86901; 86920; 87086; 87088; 88305; 88307; A9270; G0378; G0379; J0330; J1100; J1170; J2250; J2405; J2590; J2704; J2795; J3010; J3370; J3475; J7050; J7120; P9016

== ENCOUNTER 2023-06-04 01:25 | Day surgery (SDC) | payer BC, SELFPAY ==
[2023-06-03 09:48] VITALS: BMI 38.0
--- NOTE | 2023-06-03 09:53 | PC.NURSE ---
Report to the Outpatient Waiting Room, entrance under the green pavilion located off [facility], at time 1000 on date 06/04/23. Planned Procedure Time: 1200. Time changes happen often and if your time is changed the preop area will call you the afternoon before. - You and your visitor will be asked to self-screen and do not enter if you have any COVID symptoms. - A mask is optional within the hospital at this time. Patients may have clear liquids (water, carbonated beverages, clear teas, apple juice) until 3 hours prior to surgery with a maximum of 20 ounces. - No food from midnight until time of surgery Take the following medications with a SIP of water the morning of surgery: NONE DO NOT STOP ANY OF YOUR OTHER PRESCRIPTION MEDICATIONS PRIOR TO SURGERY ?EXCEPT THE FOLLOWING Medications to discontinue per physician: VITAMIN Date to take last dose: NO MORE UNTIL AFTER SURGERY Please no make-up, nail ethiopian, hairspray, perfume, deodorant, or body powder the day of surgery. No jewelry (including any body piercings) or valuables the day of surgery, leave them at home. Please take a shower or bath the night before, or the morning of, surgery with an antibacterial soap. Wear comfortable, loose fitting clothing. - Jewelry must be removed prior to entering the operating room. Rings and piercings that are not removed may be cut off. - The hospital will not accept responsibility for valuables. - Please leave all valuables, including medications, at home the day of surgery. If you are going home after surgery, a licensed route sales delivery drivers supervisor must drive you home. - NO public transportation without another adult if you receive anesthesia. - We recommend that an adult stay with you for 24 hours following discharge. - We also recommend that you do not drive, make important decision, drink alcoholic beverages, or take any drugs that were not prescribed by your health care provider for at least 24 hours after your discharge time. Follow any additional instructions given to you from your surgeon. If you or anyone in your household have experienced Covid symptoms in the past week, please notify your surgeon or the nurse liaison at the phone number below for possible testing. Telephone instructions given to REEMA UP and asked if any additional questions and then verbalized understanding. Patient advised to call surgeon office or pre surgery nurse liaison [phone] if any additional questions.
--- NOTE | 2023-06-03 14:52 | WPDANESEPPF ---
Anes - Initial Pre Proc Eval Procedure: Operation Date: 06/04/23 12:00 Proposed Procedures p Suction Dilation and Curettage - Heavenly Colvin MD Date/Time: 06/03/23 14:52 Surgeon: Heavenly Colvin MD Pre Op Diagnosis: Missed Ab Patient Data Age: 37 Gender: F Height: 1.78 m Weight: 120.2 kg Allergies Allergy/AdvReac Type Severity Reaction Status Date / Time Penicillins Allergy Severe FEVER, Verified 06/04/23 11:01 VOMITTING, FLU-LIKE SYMPTOMS, HIVES, anaphylaxis Home Medications Medication Instructions Recorded Confirmed Type docosahexaenoic acid 200 mg 200 mg PO DAILY 03/08/21 06/03/23 History capsule ( DHA) sertraline 100 mg tablet See Rx Instructions .Route 02/10/23 06/04/23 Rx .COMPLEX #90 tabs montelukast 10 mg tablet 10 mg PO DAILY #90 tabs 05/11/23 06/04/23 Rx (Singulair) alprazolam 0.5 mg tablet 0.5 mg PO BID PRN anxiety #60 tabs 06/03/23 Rx Patient hx anesthesia problems: none Family hx anesthesia problems: none Results Review: All pre-operative results and documents have been reviewed as part of the pre-operative evaluation. [facility] Past Medical History Medical History Anxiety Asthma History of blood transfusion 04/2021, Vaginal delivery x1 Surgical History Surgical History History of dilation and curettage 04/23/21, suction and sharp D&C for pp hemorrhage Family History Family History Father Hypertension, Onset Age: 47 Family history of elevated blood lipids Family history of cardiovascular disease, Onset Age: 47 Alcoholism Depression Anxiety Mother Hypertension Family history of elevated blood lipids Grandparent Cerebrovascular accident Family history of hypercholesterolemia Family history of suicide Family history of glaucoma Family history of lung cancer Alcoholism Hypertension Anxiety Depression Other Family history of arthritis Social History Social History (Updated 09/05/22 @ 13:45 by Manasa Sherman MA) Smoking status: Never smoker Second hand tobacco smoke exposure: No Alcohol intake: former Alcohol use details: WINE OCCASIONALLY WHEN NOT Substance use: never Substance use type: does not use Lack of Transportation: No Lack of Food: Never True Current Housing: I Have Housing Concerned About Future Housing: No Difficulty Paying Gas/Electric Bills: No Difficulty Paying for Meds: No Currently Unemployed: No Education: Master's Degree or Higher Living arrangements: with family Occupation/Education: occupation Gender identity (if verbalized by the patient): Female Sexual Orientation (if Verbalized by the Patient): Straight or Heterosexual Spiritual care concerns: No Agree to blood products: Yes Anes - Eval Final PreProcedure Day of Procedure 06/03/23 14:52 Patient weight: obese Heart: regular rate and rhythm Lungs: clear to auscultation Airway: Mallampati scale class II Neurological: alert and oriented Last oral intake: >/= 8 hours ASA classification: II Emergent: no Anesthetic plan: proceed Anesthesia type and monitoring: general GIVS and standard monitoring Results Review: All pre-operative results and documents have been reviewed as part of the pre-operative evaluation. Informed Consent: The patient's anesthetic plan and its attendant risks and benefits were discussed with the patient/family/POA. Questions were solicited and answers provided to the satisfaction of the patient/family/POA.
[2023-06-04] MEDS: ACETAMINOPHEN 500 MG TABLET 1000 MG PO (10:45)
[2023-06-04] MEDS: LACTATED RINGERS 1,000 ML 30 ML IV CONT (11:00)
[2023-06-04 11:03] VITALS: BP 134/83; PULSE 87; RESP 16; TEMP 36.6; O2SAT 97
--- NOTE | 2023-06-04 11:45 | WPDHPUPDATE1 ---
History and Physical Update Update Date/Time: 06/04/23 11:45 History and Physical has been reviewed, including an updated exam of the patient. There are NO changes in the patient's condition. Risks, benefits, and alternatives have been discussed and questions answered. Patient agrees to proceed with procedure.
[2023-06-04 12:20] VITALS: BP 114/74; PULSE 80; RESP 16; O2SAT 97
--- NOTE | 2023-06-04 12:27 | W.PM.PROC2 ---
Procedure Note - Detailed Date of Procedure 06/04/23 Pre-op Diagnosis Missed Ab Post-op Diagnosis Same Procedure Performed Suction D&C Surgeon Heavenly Colvin MD Anesthesia MAC Indications missed Findings normal-appearing vulva vagina and cervix to. Moderate amount of products conception within the uterus. 8 cm uterus Description of Procedure the patient was taken the operating room. She was prepped and draped in dorsal lithotomy position after induction of mac anesthesia. A speculum was placed in the vagina. Cervix grasped with tenaculum. The cervix was dilated to about 1 cm Using Hayden dilators. A 8. Macedonian curved curette was used to perform suction D&C. The curette was introduced and vacuum was applied. The curette was removed over all surfaces of the intrauterine cavity multiple times. This was done until all the surfaces were clear and had the familiar grainy texture they can be felt through the instrument. A sharp curette was then used to curettage all the surfaces. The suction cup was then reapplied 1 more time to remove any debris. The instruments were removed. The speculum and tenaculum were removed. The patient tolerated the procedure well. She was taken recovery room stable condition. Estimated Blood Loss 50 Drains No Packing No Pathology Yes Complications No immediate complications Condition Stable Disposition PACU
[2023-06-04 12:50] VITALS: BP 128/86; PULSE 70; RESP 16
== END 2023-06-04 12:05 | disposition home or self-care (01) ==
PROVIDERS: PCP Family Medicine; Visit Provider Obstetrics & Gynecology
PROC: (CPT 59820; principal; 2023-06-04 12:00)
DX: O02.1 Missed abortion (principal)
CPT/HCPCS: 59820; 36415; 85461; 86850; 86900; 86901; 88305; A9270; J2250; J2405; J2704; J3010; J7120